=== PATIENT | female | born 1990 | race Two or more races ===

== ENCOUNTER 2025-02-27 22:45 | Emergency (ER) | payer MEDICAID, OTHER ==
[~2025-02-27] VITALS: Ht 162.6 cm; Wt 77.9 kg
[2025-02-27 23:01] VITALS: BP 138/93; PULSE 89; RESP 17; TEMP 98; O2SAT 99
[2025-02-27] MEDS ORDERED: CYCL-837 PO (23:07)
[2025-02-27] MEDS ORDERED: ACET500T58 PO (23:07)
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
== END 2025-02-27 23:16 | disposition home or self-care (01) ==
LOC: ER 22:45
DX: S16.1XXA Strain of muscle, fascia and tendon at neck level, initial encounter (principal); S29.012A Strain of muscle and tendon of back wall of thorax, initial encounter; S39.012A Strain of muscle, fascia and tendon of lower back, initial encounter; S80.01XA Contusion of right knee, initial encounter; S30.0XXA Contusion of lower back and pelvis, initial encounter; S50.01XA Contusion of right elbow, initial encounter; V49.40XA Driver injured in collision with unspecified motor vehicles in traffic accident, initial encounter; Y93.I9 Activity, other involving external motion; Y92.488 Other paved roadways as the place of occurrence of the external cause; Y99.8 Other external cause status
CPT/HCPCS: 99283; J7030